=== PATIENT | male | born 1965 | race Caucasian/White ===

== ENCOUNTER → 2024-08-17 08:34 | Outpatient (REF) | payer SELFPAY | LOC: HWRAD 08:34 | PROVIDERS: ATTENDING PHYSICIAN Nurse Practitioner; FAMILY PHYSICIAN Internal Medicine | DX: E78.5 Hyperlipidemia, unspecified (principal) | CPT/HCPCS: 75571 ==

== ENCOUNTER → 2024-10-04 07:04 | Outpatient (REF) | payer BC, SELFPAY | LOC: HWRCS 07:04 | PROVIDERS: ATTENDING PHYSICIAN Internal Medicine | DX: I37.9 Nonrheumatic pulmonary valve disorder, unspecified (principal) | CPT/HCPCS: 93306 ==

== ENCOUNTER → 2024-12-12 07:11 | Outpatient (REF) | payer BC, SELFPAY | LOC: HWRAD 07:11 | PROVIDERS: ATTENDING PHYSICIAN Internal Medicine | DX: R10.9 Unspecified abdominal pain (principal); K80.20 Calculus of gallbladder without cholecystitis without obstruction | CPT/HCPCS: 76700 ==